=== PATIENT | female | born 1995 | race Two or more races ===

== ENCOUNTER 2018-08-31 13:46 | Emergency (ER) | payer MEDICAID ==
[~2018-08-31] VITALS: Ht 157.5 cm; Wt 74.0 kg
[2018-08-31] MEDS ORDERED: SODIUM CHLORIDE 0.9% 1,000 ML IV ONE (18:30)
[2018-08-31] MEDS ORDERED: ONDANSETRON HCL 4MG/2ML INJ IV STA (18:30)
[2018-08-31 19:36] LABS: BASOPHILS % 0.6 % (0.0-2.0); EOSINOPHILS % 1.2 % (0.0-5.0); HEMATOCRIT. 42.2 % (36.0-48.0); HEMOGLOBIN. 14.3 g/dL (12.0-16.0); LYMPHOCYTES % 25.4 % (20.0-50.0); MEAN CORPUSCULAR HEMOGLOBIN 27.7 pg (28.0-32.0); MEAN CORPUSCULAR VOLUME 81.8 fL (81.0-99.0); MEAN PLATELET VOLUME 6.5 fl (7.4-10.4); MONOCYTES % 4.8 % (2.0-8.0); PLATELET 381 x1000/uL (130-400); RED BLOOD CELL COUNT 5.16 mill/uL (4.2-5.4)
[2018-08-31 19:41] LABS: CHLORIDE 106 mEq/L (98-107)
[2018-08-31] MEDS ORDERED: KETOROLAC 30MG/ML VIAL IV ONE (19:45)
[2018-08-31 19:51] LABS: CLARITY URINE CLEAR (CLEAR); COLOR URINE YELLOW (YELLOW); KETONES URINE 2+ (NEGATIVE); LEUKOCYTE ESTERASE URINE NEGATIVE (NEGATIVE); NITRITE URINE NEGATIVE (NEGATIVE); OCCULT BLOOD URINE 2+ (NEGATIVE); PH URINE 6.5 (4.5-8.0); PROTEIN URINE NEGATIVE (NEGATIVE); SPECIFIC GRAVITY URINE 1.017 (1.005-1.030); UROBILINOGEN URINE 0.2 E.U./dL (0.2-1.0)
[2018-08-31 22:20] VITALS: BP 125/59
== END 2018-08-31 22:45 | disposition home or self-care (01) ==
LOC: ER 13:46
DX: R51 Headache (principal); R00.2 Palpitations; F41.9 Anxiety disorder, unspecified; R42 Dizziness and giddiness; R11.0 Nausea
CPT/HCPCS: 36415; 80053; 81003; 81025; 85025; 93005; 96361; 96374; 96375; 99284; J1885; J2405; J7030